=== PATIENT | male | born 2005 | race Caucasian/White ===

== ENCOUNTER 2024-04-16 13:16 | Outpatient (AMB) | payer OTHER, SELFPAY ==
--- NOTE | 2024-04-16 13:21 | MHC.OFFVIS ---
Intake Visit Reasons: EP-rt rib pain Coding
[2024-04-16 13:23] VITALS: BP 114/60; PULSE 76; TEMP 36.4; O2SAT 99; BMI 22.6
--- NOTE | 2024-04-16 13:24 | MHC.OFFWIV ---
Intake Vital Signs 04/16/24 13:23 Height 5 ft 7 in Weight 144 lb BMI 22.6 BP 114/60 Blood Pressure Location Lt brachial Position Sitting Pulse 76 Pulse Source Pulse Oximeter Temp 97.5 F Temp Source Temporal Artery Scan Pulse Oximetry (%) 99 Oxygen Delivery Method Room Air Intake Visit Reasons: EP-rt rib pain Intake Note: Pt presents to the office today for c/o right rib pain. Pt states he get sharp pain when breathing in. Pt states it comes and goes but hurts a lot today off and on. Patient Tobacco Use Status: Never used Tobacco Allergies polyethylene glycol 3350 [From Miralax] Allergy (Intermediate, Verified 04/16/24 13:24) Hives HPI EP-rt rib pain HPI Details This note is constructed using voice recognition software. While every effort has been made to ensure accuracy, director security risk management errors may have been included. The patient is a 19 year old male who presents to the clinic today with right chest wall pain. He notes symptom onset in the last couple of days, worse when he rolls in bed. Denies cough, shortness of breath, fever, chills, body aches, or any other URI symptoms. He reports similar symptoms in the past, approximately age 12, when he was treated with muscle relaxers and NSAIDs. Denies trauma or injury to the area. [facility] Social History Patient Tobacco Use Status: Never used Tobacco Review of Systems Const All systems reviewed & are unremarkable except as noted in HPI and below Physical Exam Vital Signs: Last Vital Signs Temp 97.5 F 04/16/24 13:23 Pulse 76 04/16/24 13:23 BP 114/60 04/16/24 13:23 Pulse Ox 99 04/16/24 13:23 Oxygen Delivery Method Room Air 04/16/24 13:23 BMI result Body Mass Index 22.6 Const General: cooperative, healthy appearing, comfortable, no acute distress and well developed Orientation/consciousness: patient oriented x3 Limitations: no limitations HEENT Head: Yes normal to inspection Ears: hearing grossly normal bilaterally General nose exam: Normal external nose present Face and sinus: Yes normal facial exam Eyes General: appearance normal, both eyes and all related structures Neck Neck: Yes normal visual inspection and Yes full ROM Chest Other: Right chest wall tenderness in the costochondral space Chest palpation & inspection: normal inspection of the chest Resp Effort & Inspection: normal respiratory effort and able to speak in complete sentences Auscultation: clear to auscultation bilaterally Cardio Rate: regular rate Rhythm: regular rhythm Heart sounds: normal S1 and S2 Skin General skin exam: no rashes or lesions noted Neuro General: patient oriented x3 Assessment & Plan Assessment & Plan (1) Costochondritis: Code(s): M94.0 - Chondrocostal junction syndrome [Tietze] Plan: Advised trial heat/ice, NSAIDs, muscle rubs. Advised patient to follow up as needed with PCP with worsening or failure to resolve. Plan See above for full details and plan. Coding Level of Care Code New Pt Level 3 (25955) Diagnoses Costochondritis M94.0
== END 2024-04-16 14:49 | disposition home or self-care (01) ==
PROVIDERS: PCP Specialist; Visit Provider Registered Nurse
DX: M94.0 Chondrocostal junction syndrome [Tietze] (principal)

== ENCOUNTER → 2024-04-16 13:16 | Outpatient (BNVA) | payer OTHER, SELFPAY | PROVIDERS: PCP Specialist; Visit Provider Registered Nurse ==

== ENCOUNTER 2025-02-12 16:47 | Emergency (ER) | payer OTHER, SELFPAY ==
--- NOTE | ~2025-02-12 | US_ITS ---
CLINICAL HISTORY: R testicular pain US Scrotum with Doppler Comparison: None provided Findings: Right testicle normal echotexture, 4.2 x 2 x 3 cm. Left testicle normal echotexture, 4.3 x 2.1 x 3 cm. Normal color flow and arterial/venous spectral tracing of both testicles. Epididymides are unremarkable. No hydroceles or varicoceles. IMPRESSION: Normal scrotal ultrasound. No evidence of torsion. This document has been electronically signed by: Boyd Knox MD on 02/12/2025 18:13:42
[2025-02-12 16:56] VITALS: BP 131/86; PULSE 88; RESP 18; TEMP 36.6; O2SAT 98; BMI 21.1
--- NOTE | 2025-02-12 16:56 | ED_ITS ---
HPI - General Adult General Chief complaint: Urogenital-Male Stated complaint: Testicular pain 1x week Time Seen by Provider: 02/12/25 21:27 Source: patient, RN notes reviewed and old records reviewed Mode of arrival: ambulatory Limitations: no limitations History of Present Illness ED Provider: Keesha KENNEDY narrative: 19-year-old male with no significant past medical history presents for e valuation of right testicular pain The patient reports that he has had the pain on and off for the last 9 days. He was seen at [facility] last Tuesday, 7 days ago. He reportedly had an ultrasound and a urinalysis that were both unremarkable and he was discharged home. The patient reports that his pain is achy in nature, intermittent. 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 but is not frequently lifting heavy Related Data Home Medications ?Medication ?Instructions ?Recorded ?Confirmed No Known Home Meds 04/16/24 04/16/24 Allergies Allergy/AdvReac Type Severity Reaction Status Date / Time polyethylene glycol 3350 Allergy Intermediate Hives Verified 02/12/25 16:59 (From [employer] Review of Systems Constitutional: Constitutional: Denies body ache(s), Denies chills, Denies fever(s) and Denies frequent falls Eyes: Eyes: Denies blurry vision ENT: Denies dizziness Cardiovascular: Cardiovascular: Denies chest pain and Denies dyspnea on exertion Respiratory: Respiratory: Denies cough and Denies dyspnea on exertion Gastrointestinal: Gastrointestinal: Reports abdominal pain, Denies nausea and Denies vomiting Genitourinary: Genitourinary: Denies hematospermia, Denies flank pain, Denies scrotal swelling, Denies testicular mass, Reports testicular pain and Denies urinary frequency Neurologic: Denies dizziness and Denies frequent falls PMFSH Social History Social History Patient Tobacco Use Status: Never used Tobacco Advance Directives: No Advance Directives Information Provided: No Do you have a plan to hurt others: No Plan Physical Exam ED Vital Signs: Vital Signs - 24 hr 02/12/25 16:56 02/12/25 20:51 02/12/25 22:28 Temperature 98 F 0 F L Pulse Rate 88 90 90 Respiratory Rate 18 16 16 Blood Pressure 131/86 105/71 105/71 Pulse Oximetry 98 96 96 Oxygen Delivery Method Room Air Room Air Room Air BMI result Body Mass Index 21.1 Const General: healthy appearing, comfortable, no acute distress, alert and awake Nutritional Appearance: well nourished Orientation/consciousness: patient oriented x3 HENMT Head: Yes normocephalic and Yes atraumatic Eyes Eyelids: Yes eyelids normal Conjunctivae: conjunctivae normal Sclerae: sclerae normal Corneas: corneas normal Pupils: Equal, round and reactive pupils present EOM: EOMs intact bilaterally Neck Neck: Yes full ROM Resp Effort & Inspection: normal respiratory effort, able to speak in complete sentences and not labored Cardio Rate: regular rate Rhythm: regular rhythm GI Other: No palpable inguinal hernia Inspection: No distended Palpation (GI): Soft to palpation, not firm, nontender, no guarding and not rigid Penis: normal penis, not edematous, no masses, no papules and no swelling Meatus: meatus normal and no meatla discharge Scrotum: scrotum normal, testes descended bilaterally, no inguinal hernias, no masses and no scrotal swelling Testes: Testes normal, testicular lie normal, not enlarged, no epididymal induration, no testicular swelling and no testicular tenderness Skin General skin exam: elasticity normal Neuro General: patient oriented x3 Cranial nerves: Yes Equal, round and reactive pupils present and Yes Bilaterally intact EOM present Cognition (Neuro): normal cognition Extrem Other: Moving all extremities well without any obvious deformities Course Course Course Narrative: This is a rapid medical exam performed by Alem Woo NP: Additional HPI, ROS, PE not included below will be deferred to primary provider. Patient is a 19y/o M presenting with complaint of right testicular pain since last tuesday. Seen at [facility], had u/s, told to take ibuprofen. Feels testicle looks out of place and bad nausea. Plan: UA, CT NG, u/s Medical Decision Making Medical Decision Making MDM Narrative: 19-year-old male presents for evaluation of testicular pain. He currently does not experience the pain. He denies any flank pain, blood in the urine, burning with urination. Denies any sexual partners. He had an ultrasound ordered in triage that is unremarkable, no evidence of torsion, no evidence of hydrocele or epididymitis. His urinalysis was clear without evidence of proteinuria, hematuria or bacteria in the urine. The patient will be discharged with Urology follow up Differential Diagnosis Differential Diagnoses: The differential diagnosis associated with the presentation includes Hydrocele Varicocele Epididymitis Testicular torsion Lab Data MDM Lab Attestation statement: I reviewed the patient's lab results. Unremarkable urinalysis Labs: Lab Results 02/12/25 Range/Units 20:46 Urine Color Yellow Urine Appearance Clear Urine pH 6.5 (5.0-9.0) Ur Specific [place] 1.020 (1.005-1.025) Urine Protein Negative (Neg-Trace) mg/dL Urine Glucose (UA) Negative (Negative) mg/dL Urine Ketones Negative (Negative) mg/dL Urine Blood Negative (Negative) Urine Nitrite Negative (Negative) Ur Leukocyte Esterase Negative (Negative) Independent Interpretation I performed an independent interpretation of an: Ultrasound Interpretation: Findings: Right testicle normal echotexture, 4.2 x 2 x 3 cm. Left testicle normal echotexture, 4.3 x 2.1 x 3 cm. Normal color flow and arterial/venous spectral tracing of both testicles. Epididymides are unremarkable. No hydroceles or varicoceles. IMPRESSION: Normal scrotal ultrasound. No evidence of torsion. This document has been electronically signed by: Boyd Knox MD on 02/12/2025 18:13:42 Radiology Impression Discussion of test interpretation with radiology: I have reviewed the radiologist's reading. Discharge Plan Discharge Clinical Impression: Pain in right testicle Patient Disposition: Home, Self-Care Instructions: Testicle Pain (ED) Additional Instructions: Your urinalysis was negative for blood, protein or signs of infection. The ultrasound did not show any evidence of torsion or cyst/masses within the scrotum. You may continue ibuprofen and Tylenol for pain. Follow up with Dr. Lazo, urology [facility] U[facility] will be contacting you within 2 business?days after being discharged from the Emergency?Department.? During this?phone call, they will inform you when your follow up appointment will be scheduled. If you have not received a call from [facility] after 2 business?days, please call the?office at [phone]. Prescriptions: No Action No Known Home Meds Referrals: [facility] Urology Services [Provider Group, Urology] Referral Note: right testicular pain Interventions: ED Discharge Assessment Last Done: 02/12/25 22:28 Discharge Date/Time: 02/12/25 22:29 Print Language: Amharic
[2025-02-12 20:51] VITALS: BP 105/71; PULSE 90; RESP 16; O2SAT 96
--- OUTSIDE RECORDS SUMMARY | 2025-02-12 20:51 | XMS_ITS | Clinical Summary ---
Author Organization [facility] Address [address] [place] [address] Phone Care Team Providers Care Cloth Inspector Name Role Phone Physician, No Pcp Primary Care Provider Unavaila ble Allergies Active Allergy Reactions Criticality Noted Date Comments Polyethylene Glycol 3350 Hives Medium 02/05/2025 Encounters Date Type Department Care Team Description 02/05/2025 8:48 PM EDT - 02/05/2025 11:47 PM EDT Emergency [facility] Emergency [address] [place] [address] Acute pain in scrotum (Primary Dx) Discharge Disposition: Home or Self Care from Last 3 Months Social History Tobacco Use Types Packs/Day Years Used Date Smoking Tobacco: Never Assessed Sex and Gender Information Value Date Recorded Sex Assigned at Not on file Legal Sex Male 8:37 PM EDT Gender Identity Not on file Sexual Orientation Not on file Last Filed Vital Signs Vital Sign Reading Time Taken Comments Blood Pressure 110/73 02/05/2025 8:42 PM EDT Pulse 68 02/05/2025 8:42 PM EDT Temperature 36.6 C (97.9 F) 02/05/2025 8:42 PM EDT Respiratory Rate 16 02/05/2025 8:42 PM EDT Oxygen Saturation 96% 02/05/2025 8:42 PM EDT Inhaled Oxygen Concentration - - Weight 63.5 kg (140 lb) 02/05/2025 8:42 PM EDT Height 170.2 cm (5' 7 ) 02/05/2025 8:42 PM EDT Body Mass Index 21.93 02/05/2025 8:42 PM EDT Plan of Treatment Health Maintenance Due Date Last Done Comments HPV Vaccines (1 - Male 3-dos e series) 2018 Meningococcal B Vaccine (1 o f 2 - Standard) 2019 DTaP,Tdap,and Td Vaccines (1 - Tdap) 2022 Hepatitis B Vaccines (1 of 3 - 19+ 3-dose series) 2022 Depression Screening 05/02/2024 COVID-19 Vaccine (1 - 2023-2 5 season) 2024 Influenza Vaccine (#1) 2024 Annual Well Child Visit (3-2 1 years old) 02/05/2025 HIV Screening 02/05/2025 Hepatitis C Screening 02/05/2025 Social Influencers of Health Screening 02/05/2025 RSV Immunization Adult Patie nts (1 - 1-dose 75+ series) 2078 HIB Vaccines Aged Out No longer eligi ble based on patient's age to complete this topic Hepatitis A Vaccines Aged Out No long er eligible based on patient's age to complete this topic IPV Vaccines Aged Out No longer eligi ble based on patient's age to complete this topic MMR Vaccines Aged Out No longer eligi ble based on patient's age to complete this topic Meningococcal ACWY Vaccine Aged Out N o longer eligible based on patient's age to complete this topic Pneumococcal Vaccine: Pediat rics (0 to 5 Years) and At-Risk Patients (6 to 49 Years) Aged Out No longer eligible b ased on patient's age to complete this topic RSV Immunization Patients Un nasreen 20 months Aged Out No longer eligible b ased on patient's age to complete this topic Varicella Vaccines Aged Out No longer eligible based on patient's age to complete this topic Procedures Procedure Name Priority Date/Time Associated Diagnosis Comments URINALYSIS WITH REFLEX MICROSCOPIC STAT 02/05/2025 11:09 PM EDT URINALYSIS WITH REFLEX MICROSCOPIC STAT 02/05/2025 11:09 PM EDT US SCROTUM AND CONTENTS STAT 02/05/2025 9:29 PM EDT from Last 3 Months Results * Urinalysis with reflex microscopic (02/05/2025 11:09 PM EDT) Specific [place] Urine 1.024 1.003 - 1.030 LAB URINALYSIS - AUTOMATED METHOD 02/05/2025 11:[address] [facility] pH, Urine 6.5 5.0 - 8.0 pH LAB URINALYSIS - AUTOMATED METHOD 02/05/2025 11:[address] [facility] Leukocytes, Urine Negative Negative LAB URINALYSIS - AUTOMATED METHOD 02/05/2025 11:[address] [facility] Nitrite, Urine Negative Negative LAB URINALYSIS - AUTOMATED METHOD 02/05/2025 11:[address] [facility] Protein, Urine Negative <=Trace mg/dL LAB URINALYSIS - AUTOMATED METHOD 02/05/2025 11:[address] [facility] Glucose, Urine Negative Negative mg/dL LAB URINALYSIS - AUTOMATED METHOD 02/05/2025 11:[address] [facility] Ketones, Urine Negative Negative mg/dL LAB URINALYSIS - AUTOMATED METHOD 02/05/2025 11:[address] [facility] Urobilinogen, Urine 1.0 0.2 - 1.0 mg/dL LAB URINALYSIS - AUTOMATED METHOD 02/05/2025 11:[address] [facility] Bilirubin, Urine Negative Negative LAB URINALYSIS - AUTOMATED METHOD 02/05/2025 11:[address] [facility] Blood, Urine Negative Negative LAB URINALYSIS - AUTOMATED METHOD 02/05/2025 11:[address] [facility] Urine Urine specimen obtained by clean catch procedure / Unknown Non-blood Collection / Unknown 02/05/2025 11:09 PM EDT 02/05/2025 11:21 PM EDT us Clarissa RAMIREZ LAB URINE ORDERABLES Fin al Result [facility] [address] [place] [address], * US Scrotum and Contents (02/05/2025 9:29 PM EDT) Anatomical Region Laterality Modality Body Ultrasound 02/05/2025 10:1 7 PM EDT Impressions 02/05/2025 10:17 PM EDT Normal scrotal ultrasound. No evidence of torsion. This document has been electronically signed by: Colt Ha MD on 02/05/2025 22:17:14 Narrative 02/05/2025 10:17 PM EDT INDICATION: pain US Scrotum with Doppler Comparison: None provided Findings: Right testicle normal echotexture, 4.3 x 2.6 x 2.8 cm. Left testicle normal echotexture, 4.3 x 2.1 x 3.0 cm. Color Doppler and arterial/venous spectral tracings of both testicles within normal limits. Normal epididymides. No varicoceles. No hydroceles. Procedure Note Colt Ha MD - 02/05/2025 INDICATION: pain US Scrotum with Doppler Comparison: None provided Findings: Right testicle normal echotexture, 4.3 x 2.6 x 2.8 cm. Left testicle normal echotexture, 4.3 x 2.1 x 3.0 cm. Color Doppler and arterial/venous spectral tracings of both testicles within normal limits. Normal epididymides. No varicoceles. No hydroceles. IMPRESSION: Normal scrotal ultrasound. No evidence of torsion. This document has been electronically signed by: Colt Ha MD on 02/05/2025 22:17:14 us Clarissa RAMIREZ IMG US PROCEDURES Final Result from Last 3 Months Insurance [employer] Care Teams Cloth Inspector Relationship Specialty Start Date End Date Physician, No Pcp PCP - General 02/05/25
[2025-02-12 21:05] LABS: Appearance Urine Clear; Glucose Urine UA Negative (Negative); PH 6.5 (5.0-9.0); Specific Gravity - Urine 1.020 (1.005-1.025)
[2025-02-12 22:28] VITALS: BP 105/71; PULSE 90; RESP 16; TEMP -17.7; TEMP 0; O2SAT 96
[2025-02-13 02:09] LABS: CT PCR Urine NOT DETECTED (Not Detect.); NG PCR Urine NOT DETECTED (Not Detect.)
== END 2025-02-12 22:29 | disposition home or self-care (01) ==
PROVIDERS: Registered Nurse Emergency; Emergency Provider Emergency Medicine Emergency Medical Services; PCP Specialist
DX: N50.811 Right testicular pain (principal); R10.31 Right lower quadrant pain
CPT/HCPCS: 76870; 81003; 87491; 87591; 93975; 99283; 99284

== ENCOUNTER → 2025-02-12 16:57 | Outpatient (BNV) | payer OTHER, SELFPAY | PROVIDERS: Visit Provider Radiology Diagnostic Radiology | DX: N50.811 Right testicular pain (principal) | CPT/HCPCS: 93975 ==

== ENCOUNTER 2025-03-27 14:35 | Outpatient (AMB) | payer OTHER, SELFPAY ==
--- NOTE | 2025-03-27 14:55 | MHC.OFFVIS ---
Intake Visit Reasons: [facility] ER-Testicular Pain/UA(set) Intake Note: Reason for Visit: [facility] ER- Testicular Pain/UA Urology Meds: None Blood Thinners: None Antibiotic Allergy: None Labs: None Imaging: Scrotum Ultrasound- 02/12/2025 Last PVR: None Family History: Prostate Cancer? No Bladder Cancer? No Kidney Cancer? No Previous Urology? No Patient denies any pain or discomfort Receiving Supervisor Required: No Accompanied by: Self / Same As Patient Allergies polyethylene glycol 3350 (From Miralax) Allergy (Intermediate, Verified 03/27/25 14:58) Hives HPI Comments Details: Stevan is a pleasant male. He is a patient of Dr. Barnhart. He is seen with the following urologic conditions - testicular pain ER visit in January Scrotal ultrasound performed no abnormality detected Appears to have been self resolving Reassurance provided P.r.n. follow-up COUNTS INCLUDE 234 BEDS AT [facility] Social History Patient Tobacco Use Status: Never used Tobacco Results AMB Urinalysis, Automated UA Leukoctes 0 Alexandra/uL Last Edit by KIRILL Carrero on 03/27/25 15:08 UA Nitrite Negative Last Edit by KIRILL Carrero on 03/27/25 15:08 UA Urobilinogen 0.2 mg/dL Last Edit by KIRILL Carrero on 03/27/25 15:08 UA Protein 15 mg/dL Last Edit by KIRILL Carrero on 03/27/25 15:08 UA pH 6.0 Last Edit by KIRILL Carrero on 03/27/25 15:08 UA Blood 0 Robson/uL Last Edit by KIRILL Carrero on 03/27/25 15:08 UA Specific [place] 1.025 Last Edit by KIRILL Carrero on 03/27/25 15:08 UA Ketone Negative Last Edit by KIRILL Carrero on 03/27/25 15:08 UA Bilirubin 0 mg/dL Last Edit by KIRILL Carrero on 03/27/25 15:08 UA Glucose 0 mg/dL Last Edit by KIRILL Carrero on 03/27/25 15:08 Assessment & Plan Assessment & Plan Orders: Orders AMB Urinalysis Automated Today Z13.9 - Encounter for screening, unspecified Coding
== END 2025-03-27 15:12 | disposition home or self-care (01) ==
LOC: HO.HUSH 14:36
PROVIDERS: PCP Specialist; Visit Provider Urology
DX: Z13.9 Encounter for screening, unspecified (principal)

== ENCOUNTER → 2025-03-27 14:35 | Outpatient (BNVA) | payer OTHER, SELFPAY | PROVIDERS: PCP Specialist; Visit Provider Urology | DX: N50.819 Testicular pain, unspecified (principal); Z13.89 Encounter for screening for other disorder | CPT/HCPCS: 81003 ==